=== PATIENT | male | born 1970 | race Caucasian/White ===

== ENCOUNTER 2019-01-10 08:55 | Outpatient (CLI) | payer OTHER, SELFPAY ==
[2019-01-10] VITALS (8 sets, daily range): BP systolic 110–122; BP diastolic 70–85; PULSE 58–80; RESP 16–18; TEMP 36.3; O2SAT 95–100
--- NOTE | 2019-01-10 08:59 | DI.RAD.S_ITS ---
PROCEDURE: PAIN L INTERLAMINAR/CAUDAL INJ INDICATIONS: SPINAL STENOSIS FINDINGS: 4 fluoroscopic spot filming was performed to verify placement of spinal needles at the L4-L5 level(s), as labeled on the films. Appropriate location(s) of the needle tip(s) was confirmed by injection of iodinated contrast. IMPRESSION: Fluoroscopy for pain management. Dictated by: Jeff Buckner M.D. on 01/10/2019 at 11:55 Approved by: Jeff Buckner M.D. on 01/10/2019 at 11:56
[2019-01-10] MEDS: MIDAZOLAM 5 MG/5 ML VIAL IV (10:00)
[2019-01-10] MEDS: fentaNYL 100 MCG/2 ML INJ 50 MCG IV (10:00)
[2019-01-10] MEDS: BETAMETHASONE 30 MG/5 ML MDV 12 MG INJ (10:04)
[2019-01-10] MEDS: IOPAMIDOL 15 ML VIAL 3 ML INJ (10:04)
[2019-01-10] MEDS: BUPIVACAINE 0.25% (PF) VIAL 2 ML INJ (10:04)
[2019-01-10] MEDS: DEXAMETHASONE 10 MG/ML VIAL 20 MG INJ (10:05)
--- NOTE | 2019-01-10 10:12 | PC.NURSE ---
pt tolerated procedure well. Able to get off the table with standby assist. Transferred pt via wheelchair awake and alert to pre procedure room. Once he arrived he became nauseous again, reclined him in the chair. Handed over care to Shanna WOODS.
--- NOTE | 2019-01-10 10:16 | P.PCN_ITS ---
Procedures Date/Time Date of procedure: 01/10/19 Time of procedure: 10:13 General Procedure description: PROVIDER: Caleb Kevin DO Operative Note PREOP DIAGNOSIS 1. HNP WITH RADICULAR FEATURES, 2. MULTILEVEL CENTRAL STENOSIS, POST OP DIAGNOSIS 1. HNP WITH RADICULAR FEATURES, 2. MULTILEVEL CENTRAL STENOSIS PROCEDURES 1. FLUORSCOPICALLY GUIDED CONTRAST CONTROLLED INTERLAMINAR EPIDURAL STEROID INJECTION -L4/5 PHYSICIAN: Caleb Kevin DO INDICATIONs: Aguilar is referred by [] for treatment of Bilateral Foraminal Stenosis R>L LE symptoms. FINDINGS Multilevel Central Spinal Stenosis with Nerve Root Compression DESCRIPTION OF PROCEDURE Fluoroscopically guided, contrast-controlled L4/5 translaminar epidural steroid injection. Following review of allergy and review of potential side effects and complications, including, but not necessarily limited to, infection, allergic reaction, local tissue breakdown, temporary as well as permanent nerve injury, paralysis, stroke and possible , the patient indicated that the patient understood and agreed to proceed. An informed consent document was signed by the patient, witnessed by a nurse, and placed in the patient's chart. Additionally, other treatment options including modalities, medications, and physical therapy were reviewed with the patient. After review of previous anaesthesic history and IV conscious sedation the patient was deemed safe to proceed with todays procedure with IV conscious sedation as ASA class II designation. Safety time-out was performed to confirm patient ID, procedure to be performed and site of procedure. IV sedation was acc omplished with a combination of 2mg of Versed and 50mcg of Fentanyl was administered by the RN after DO order, titrated to patient comfort during the course of the procedure while the patient remained responsive to all verbal commands In the prone position, following sterile prep and drape of the lumbar region, the L4/5 translaminar space was identified fluoroscopically. The skin was anesthetized via a 25-gauge, 1.5-inch needle with 1% lidocaine solution. At this point, a 22-gauge short bevel spinal needle was atraumatically introduced and advanced under fluoroscopic guidance into the region of the L4/5 translaminar space. Depth was confirmed on lateral view. Radiological data, including multiple fluoroscopic views of the lumbar spine, reveal a spinal needle at the L4/5 translaminar space. Lateral views then show placement of the needle in the epidural space. Subsequent views show contrast material flowing superiorly and inferiorly in the epidural space. No vascular or intrathecal uptake is observed. At this point, using loss of resistance technique with saline and air, the epidural space was entered. This was confirmed following negative aspiration with injection of approximately 1.5 cc of Isovue 200, showing excellent epidural flow without vascular or intrathecal uptake. At this point, 1 cc of 1% lidocaine solution combined with 3cc or 20mg of dexamethasone and 6mg of betamethasone was injected without incident. The patient tolerated the procedure well without signs or symptoms of complications prior to transfer to the recovery area continued monitoring without incident. The patient was then transferred to the recovery area where they were observed for an appropriate period of time after the injection. The patient reported a VAS score of 6 prior to the procedure and a post- procedure VAS of 0. Total Fluoroscopy Time: 11.8 seconds, 8.99 mGy Total Conscious Sedation Time: 24min POST OP INSTRUCTIONS The patient was provided a Pain Log to continue to record their response to the target-specific procedure prior to follow-up visit with their referring physician. Additionally, specific post-injection care instructions and a contact number to our office were provided if concerns arise regarding possible complications associated with the procedure are suspected. Caleb Kevin, Complications: none
== END 2019-01-10 11:43 | disposition home or self-care (01) ==
LOC: RAD 08:58
PROVIDERS: Visit Provider Physical Medicine & Rehabilitation
DX: M51.16 Intervertebral disc disorders with radiculopathy, lumbar region (principal); M48.061 Spinal stenosis, lumbar region without neurogenic claudication
CPT/HCPCS: 62323; 99152; J0702; J1100; J2250; J3010

== ENCOUNTER → 2021-04-08 14:38 | Outpatient (CLI) | payer OTHER, SELFPAY ==
--- NOTE | 2021-04-08 14:46 | DI.RAD.S_ITS ---
PROCEDURE: XR SHOULDER RT MIN 2V INDICATIONS: BI SHOULDER IMPINGEMENT/DIFFICULTY BREATHING TECHNIQUE: 3 views of the shoulder were acquired. COMPARISON: None. FINDINGS: Bones: No fractures or dislocations. No suspicious bony lesions. Visualized ribs appear intact. Mild high-riding appearance of the humeral head. Soft tissues: No suspicious soft tissue calcifications. IMPRESSION: High riding appearance of the humeral head, which can be indicative of rotator cuff pathology. Dictated by: Hazel Barroso M.D. on 04/08/2021 at 16:34 Approved by: Hazel Barroso M.D. on 04/08/2021 at 16:34
--- NOTE | 2021-04-08 14:46 | DI.RAD.S_ITS ---
PROCEDURE: XR SHOULDER LT MIN 2V INDICATIONS: BI SHOULDER IMPINGEMENT/DIFFICULTY BREATHING TECHNIQUE: 3 views of the shoulder were acquired. COMPARISON: None. FINDINGS: Bones: No fractures or dislocations. No suspicious bony lesions. Visualized ribs appear intact. Mild joint narrowing with periarticular osteophyte formation of the acromioclavicular and glenohumeral joint. Hill-Sachs deformity. Soft tissues: No suspicious soft tissue calcifications. IMPRESSION: Mild acromioclavicular and glenohumeral joint degeneration. Mild Hill-Sachs deformity. Dictated by: Chong Marks [facility] Interpreted: Damir Crouch MD on 04/08/2021 at 15:05 Transcribed by: QUENTIN on 04/08/2021 at 15:08 Approved by: Damir Crouch M.D. on 04/08/2021 at 17:28
--- NOTE | 2021-04-08 14:46 | DI.RAD.S_ITS ---
PROCEDURE: XR CHEST 2V INDICATIONS: BI SHOULDER IMPINGEMENT/DIFFICULTY BREATHING TECHNIQUE: 2 views of the chest were acquired. COMPARISON: None. FINDINGS: Surgical changes and devices: None. Lungs and pleura: Lungs are clear. No pleural effusions or pneumothorax. Mediastinum: Mediastinal contours are normal. Heart size is normal. Bones and chest wall: No suspicious bony abnormalities. Soft tissues appear unremarkable. IMPRESSION: No source for dyspnea identified. Dictated by: Chong Marks RR Interpreted: Damir Crouch MD on 04/08/2021 at 15:04 Transcribed by: QUENTIN on 04/08/2021 at 15:04 Approved by: Damir Crouch M.D. on 04/08/2021 at 17:27
== END ==
PROVIDERS: PCP Family Medicine; Referring Provider Chiropractor; Visit Provider Chiropractor
DX: R06.89 Other abnormalities of breathing (principal); M75.40 Impingement syndrome of unspecified shoulder
CPT/HCPCS: 71046; 73030